=== PATIENT | female | born 1995 | race Two or more races ===

== ENCOUNTER → 2022-05-07 15:33 | Outpatient (CLI) | payer BC, SELFPAY ==
--- NOTE | 2022-05-07 15:38 | MM_ITS ---
PROCEDURE INFORMATION: Exam: MG Bilateral Screening 3D Mammography Exam date and time: 05/07/2022 3:32 PM Age: 26 years old Clinical indication: Sonography 07/09/2021 with concern for palpable abnormality and the left 11 o'clock region felt to correspond to a 0.7 cm sebaceous/epidermal cyst with incidental adjacent 0.4 cm cluster of cysts at 11 o'clock 4 cm from the nipple. No report of a palpable concern at this time. This is her 1st mammogram. No family history of breast cancer. TECHNIQUE: Imaging protocol: Bilateral Screening tomosynthesis and 2D mammography including computer-aided detection (CAD) when performed. COMPARISON: US BREAST LEFT LIMITED 07/09/2021 8:52 AM FINDINGS: MAMMOGRAPHY: Breast composition: The breasts are almost entirely fatty. Mass: None. Architectural distortion: None. Calcifications: No suspicious calcifications. Asymmetric density: None. Skin thickening: None. Axillary adenopathy: None. IMPRESSION: No mammographic evidence of malignancy. Annual screening is recommended, at age 40, unless otherwise clinically indicated. ASSESSMENT: BI-RADS Category 1: Negative
== END ==
PROVIDERS: Visit Provider Nurse Practitioner Family
DX: Z12.31 Encounter for screening mammogram for malignant neoplasm of breast (principal)
CPT/HCPCS: 77063; 77067